=== PATIENT | male | born 1950 | race Caucasian/White ===

== ENCOUNTER 2018-05-08 20:14 | Observation (INO) | payer MEDICARE, OTHER ==
[~2018-05-08] VITALS: Ht 190.5 cm; Wt 112.6 kg
[~2018-05-08 20:14] MED LIST: ALBU8HFA PO
[2018-05-08 21:08] LABS: BASOPHILS % (AUTO) 0.3 % (0-1); EOSINOPHILS # (AUTO) 0.2 X10'3 (0-0.9); EOSINOPHILS % (AUTO) 2.7 % (0-6); HEMATOCRIT 41.4 % (42.0-52.0); HEMOGLOBIN 13.8 g/dl (14.0-17.9); LYMPHOCYTES % (AUTO) 34.6 % (21-51); MEAN CORPUSCULAR HEMOGLOBIN 31.1 PG (27.0-31.0); MEAN CORPUSCULAR HGB CONC 33.2 % (33.0-36.5); MEAN CORPUSCULAR VOLUME 93.7 FL (78-98); MEAN PLATELET VOLUME 7.8 FL (7.4-10.4); MONOCYTES # (AUTO) 0.6 X10'3 (0-0.9); NEUTROPHILS # (AUTO) 4.9 X10'3 (1.8-7.7); NEUTROPHILS % (AUTO) 55.4 % (42-75); PLATELET COUNT 259 X10'3 (140-440); RED BLOOD COUNT 4.42 X10'6 (4.70-6.10); RED CELL DISTRIBUTION WIDTH 13.1 % (11.5-14.5); WHITE BLOOD COUNT 8.8 X10'3 (4.5-11.0)
[2018-05-08 21:21] LABS: ALANINE AMINOTRANSFERASE 31 U/L (12-78); ALBUMIN 3.8 G/DL (3.4-5.0); ALKALINE PHOSPHATASE 61 IU/L (46-116); ANION GAP 8 (8-16); ASPARTATE AMINO TRANSFERASE 24 U/L (10-37); BILIRUBIN,TOTAL 0.5 MG/DL (0.1-1.0); BLOOD UREA NITROGEN 13 MG/DL (7-18); BUN/CREATININE RATIO 12.6 (5.4-32.0); CALCIUM 9.2 MG/DL (8.5-10.1); CHLORIDE 103 MMOL/L (99-107); CREATININE 1.03 MG/DL (0.60-1.10); GLUCOSE 143 MG/DL (70-104); POTASSIUM 3.4 MMOL/L (3.5-5.1); SODIUM 142 MMOL/L (135-145); TOTAL CARBON DIOXIDE 31.4 MMOL/L (24-32); TOTAL PROTEIN 7.8 G/DL (6.4-8.2); eGFR 72 ML/MIN
[2018-05-08 21:42] LABS: PARTIAL THROMBOPLASTIN TIME 29 SECONDS (22-32)
[2018-05-08] MEDS ORDERED: aspirin 81mg tab.chew PO ONE (21:50)
[2018-05-08] MEDS ORDERED: ATOR20TA PO (22:38)
[2018-05-08] MEDS ORDERED: ASPI81TA52 PO (22:38)
[2018-05-08] MEDS ORDERED: CHOL100046 PO (22:38)
[2018-05-08] MEDS ORDERED: OMEG-166 PO (22:38)
[2018-05-09] VITALS (11 sets, daily range): BP systolic 163–194; BP diastolic 76–88
[2018-05-09] MEDS ORDERED: magnesium hydroxide 30ml (MOM) UD suspension PO PRN (01:00)
[2018-05-09] MEDS ORDERED: HYDROcodone/acetaminophen 5mg/325mg tablet PO PRN (01:00)
[2018-05-09] MEDS ORDERED: ondansetron/PF 4mg/2ml inj IV PRN (01:00)
[2018-05-09] MEDS ORDERED: acetaminophen 325mg tablet PO PRN (01:00)
[2018-05-09] MEDS ORDERED: aminophylline 250mg/10ml inj. IV PRN (01:00)
[2018-05-09] MEDS ORDERED: metoprolol tartrate 1mg/ml inj IV PRN (01:00)
[2018-05-09] MEDS ORDERED: nitroGLYCERIN 0.4mg SUBLingual tab SL PRN (01:00)
[2018-05-09] MEDS ORDERED: regadenoson 0.4mg/5ml syringe IV ONE ×2 (01:00→09:12)
[2018-05-09] MEDS ORDERED: mag hydrox/Alum hydrox/simeth 30ml oral suspension PO PRN (01:00)
[2018-05-09] MEDS ORDERED: aminophylline inj. 0 ML IV ONE (09:12)
[2018-05-09] MEDS: OMEGA-3/DHA/EPA/FISH OIL 1 EACH CAPSULE.DR PO SCH (10:36)
[2018-05-09] MEDS: vitamin D (cholecalciferol) 1,000 unit tablet PO SCH (10:36)
[2018-05-09] MEDS: aspirin 81mg tablet.DR PO SCH (10:36)
[2018-05-09] MEDS: heparin, porcine 5000 units/ml vial SQ SCH ×2 (10:37→19:31)
[2018-05-09] MEDS: metoprolol tartrate 25mg tablet PO SCH ×2 (13:32→19:13)
[2018-05-09] MEDS ORDERED: atorvastatin 20mg tablet PO SCH ×2 (21:00)
[2018-05-10 03:00] VITALS: BP 171/89
[2018-05-10 06:00] VITALS: BP 179/72
[2018-05-10] MEDS: aspirin 81mg tablet.DR PO SCH (07:43)
[2018-05-10] MEDS: heparin, porcine 5000 units/ml vial SQ SCH (07:43)
[2018-05-10] MEDS: metoprolol tartrate 25mg tablet PO SCH (07:43)
[2018-05-10] MEDS: vitamin D (cholecalciferol) 1,000 unit tablet PO SCH (07:44)
[2018-05-10] MEDS: OMEGA-3/DHA/EPA/FISH OIL 1 EACH CAPSULE.DR PO SCH (07:44)
[2018-05-10] MEDS ORDERED: isosorbide mononitrate 30mg tab.SR.24H PO SCH (08:00)
[2018-05-10 11:00] VITALS: BP 154/73
[2018-05-10] MEDS ORDERED: LISI10TA4 PO (12:56)
[2018-05-10] MEDS ORDERED: METO25TA6 PO (12:56)
[2018-05-10] MEDS ORDERED: NITR0.4T51 SL (12:56)
== END 2018-05-10 14:08 | disposition home or self-care (01) ==
LOC: ER 20:14 → ED HOLD 05-09 00:57 → EDBEDREQ 05-09 06:20 → PCU 3S 05-09 07:50
PROVIDERS: ADMIT Internal Medicine; ATTEND Family Medicine
DX: R07.89 Other chest pain (principal); I10 Essential (primary) hypertension; E78.5 Hyperlipidemia, unspecified; E66.9 Obesity, unspecified; M54.12 Radiculopathy, cervical region; Z87.891 Personal history of nicotine dependence
CPT/HCPCS: 36415; 71045; 78452; 80053; 84484; 85025; 85610; 85730; 87070; 93005; 93017; 93306; 96372; 96374; 99285; A9500; G0378; J1644; J3490; J0280